=== PATIENT | male | born 1985 | race Caucasian/White ===

== ENCOUNTER 2021-07-18 10:59 | Emergency (ER) | payer OTHER ==
[2021-07-18 11:20] VITALS: BP 136/96; PULSE 106; TEMP 99.4; BMI 26.3
[2021-07-18] MEDS ORDERED: IBUPROFEN 600 MG TABLET (FP) PO ONE ×2 (12:28→12:51)
[2021-07-21 14:08] LABS: BABESIA MICROTI ANTIBODY IGG <1:10 (Neg:<1:10); BABESIA MICROTI ANTIBODY IGM <1:10 (Neg:<1:10)
== END 2021-07-18 13:19 | disposition home or self-care (01) ==
LOC: JER 10:59
DX: J06.9 Acute upper respiratory infection, unspecified (principal)
CPT/HCPCS: 36415; 82930; 86618; 86753; 99283-25